=== PATIENT | female | born 2000 | race Caucasian/White ===

== ENCOUNTER 2022-12-02 15:58 | Emergency (ER) | payer MEDICAID, SELFPAY ==
[2022-12-02 15:58] VITALS: BP 120/80; PULSE 93; RESP 18; TEMP 37.2; O2SAT 100
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
[2022-12-02 16:28] LABS: Abs Immature Grans 0.04 10^3/uL (0.0-0.06); Absolute Basophil Count 0.04 10^3/uL (0.0-0.2); Absolute Eosinophil Count 0.06 10^3/uL (0.0-0.7); Absolute Lymphocyte Count 2.05 10^3/uL (1.2-3.4); Absolute Monocyte Count 0.63 10^3/uL (0.1-0.8); Basophils % 0.4; Eosinophils % 0.6; HCT 37.3 % (36.0-46.0); HGB 13.1 g/dL (11.2-15.7); Immature Grans % 0.4; Lymphocytes % 20.3; MCH 30.6 pg (27.0-33.0); MCHC 35.1 % (32.0-36.0); MCV 87 fL (80-95); MPV 10.5 fL (8.0-11.0); Monocytes % 6.2; Neutrophils % 72.1; Platelet Count 294 10^3/uL (130-400); RBC 4.28 10^6/uL (3.93-5.22); RDW 13.6 % (11.7-14.6); RDW-SD 43.4 fL; WBC 10.12 10^3/uL (4.4-10.8)
[2022-12-02] MEDS: diazePAM 10 MG/2 ML SYR 2.5 MG IVP (16:29)
[2022-12-02 16:44] LABS: ALT 21 U/L (14-59); AST 12 U/L (15-37); Albumin 3.8 g/dL (3.4-5.0); Alkaline Phosphatase 84 U/L (46-116); Anion Gap 8.7 mmol/L (3-11); BUN 13 mg/dL (7-18); Bilirubin, Total 0.4 mg/dL (0.2-1.0); CO2 25.3 mmol/L (21.0-32.0); CREATININE 0.8 mg/dL (0.55-1.02); Calcium 9.2 mg/dL (8.5-10.1); Chloride 105 mmol/L (98-107); Estimated GFR 105.45 (mL/min/1.73m2); Glucose 101 mg/dL (74-106); Potassium 3.4 mmol/L (3.5-5.1); Sodium 139 mmol/L (136-145); Total Protein 7.2 g/dL (6.4-8.2)
[2022-12-02 16:51] LABS: HCG Qual (Serum) Positive
[2022-12-02 17:15] LABS: HCG Quant, Pregnancy 220 mIU/mL (1-3)
[2022-12-02] MEDS: Bacitracin 1 PACKET (17:34)
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
[2022-12-02 18:23] VITALS: BP 127/84; PULSE 92; RESP 18; O2SAT 98
== END 2022-12-02 18:25 | disposition home or self-care (01) ==
LOC: ER 18:16
PROVIDERS: Emergency Provider Emergency Medicine Emergency Medical Services
DX: T22.512A Corrosion of first degree of left forearm, initial encounter (principal); V49.40XA Driver injured in collision with unspecified motor vehicles in traffic accident, initial encounter; Z32.01 Encounter for pregnancy test, result positive; W22.11XA Striking against or struck by driver side automobile airbag, initial encounter
CPT/HCPCS: 36415; 80053; 96374; 99284; 84702; 84703; 85025; J3360